=== PATIENT | female | born 1985 | race Caucasian/White ===

== ENCOUNTER 2016-12-06 18:21 | Emergency (ER) | payer SELFPAY ==
[~2016-12-06] VITALS: Ht 162.6 cm; Wt 81.6 kg
[2016-12-06] MEDS ORDERED: EPINEPHRINE 1 MG/ML VIAL. ONE (18:27)
[2016-12-06] MEDS ORDERED: FAMOTIDINE 20 MG/2 ML VIAL ONE (18:28)
[2016-12-06] MEDS ORDERED: DIPHENHYDRAMINE 50 MG/ML VIAL ONE (18:28)
[2016-12-06] MEDS ORDERED: methylPREDNISolone SOD SUCC PF 125 MG/2 ML VIAL. ONE (18:28)
[2016-12-06] MEDS ORDERED: LORAZEPAM 2 MG/ML VIAL ONE (18:38)
[2016-12-06] MEDS ORDERED: ONDANSETRON PF 4 MG/2 ML VIAL. ONE ×2 (18:38→18:39)
[2016-12-06] MEDS ORDERED: methylPREDNISolone SOD SUCC PF 125 MG/2 ML VIAL. IV ONE (18:45)
[2016-12-06] MEDS ORDERED: FAMOTIDINE 20 MG TABLET. PO ONE (18:45)
[2016-12-06] MEDS ORDERED: IV NORMAL SALINE 1000ML BAG 1,000 ML IV ONE (18:45)
[2016-12-06] MEDS ORDERED: LORAZEPAM 2 MG/ML VIAL IV ONE (19:00)
[2016-12-06] MEDS ORDERED: ONDANSETRON PF 4 MG/2 ML VIAL. IV ONE (19:00)
[2016-12-06 20:00] VITALS: BP 115/57
[2016-12-06] MEDS ORDERED: RANI300T3 PO (20:02)
[2016-12-06] MEDS ORDERED: HYDR-971 PO (20:02)
[2016-12-06] MEDS ORDERED: PRED20TA PO (20:02)
--- NOTE | 2016-12-06 20:02 | PHYS DOC ---
Past Medical History Past Medical History: No Pertinent History Past Surgical History: , Hysterectomy, Tubal ligation Alcohol Use: None Drug Use: None Adult General Chief Complaint Chief Complaint: ALLERGIC REACTION HPI HPI 31-year-old female presents with a pruritic diffuse red rash. She states this developed suddenly approximately an hour prior to her arrival. She states she felt like her eyes were swollen shut and was unable to see tripped over something at the house and landed on her left hip. She was ambulatory after the accident. She does continue to complain of left hip pain. She denies any difficulty breathing. She states it does feel like there is a golf ball in her throat though. [] Review of Systems Review of Systems Constitutional: Denies fever or chills [] Eyes: Denies change in visual acuity, redness, or eye pain [] HENT: Denies nasal congestion or sore throat [] Respiratory: Denies cough or shortness of breath [] Cardiovascular: No additional information not addressed in HPI [] GI: Denies abdominal pain, nausea, vomiting, bloody stools or diarrhea [] : Denies dysuria or hematuria [] Musculoskeletal: Denies back pain or joint pain [] Integument: Per history of present illness [] Neurologic: Denies headache, focal weakness or sensory changes [] Endocrine: Denies polyuria or polydipsia [] Current Medications Current Medications Current Medications Medications (Trade) Dose Ordered Sig/Giacomo Start Time Stop Time Status Last Admin Dose Admin Diphenhydramine HCl (Benadryl) 50 mg STK-MED ONCE 12/06/16 18:28 12/06/16 18:29 DC Epinephrine HCl (Adrenalin) 1 mg STK-MED ONCE 12/06/16 18:27 12/06/16 18:28 DC Famotidine (Pepcid) 20 mg STK-MED ONCE 12/06/16 18:28 12/06/16 18:29 DC Famotidine 20 mg 20 mg 1X ONCE 12/06/16 18:45 12/06/16 18:46 DC 12/06/16 18:33 20 MG Lorazepam (Ativan) 1 mg 1X ONCE 12/06/16 19:00 12/06/16 19:01 DC 12/06/16 18:40 1 MG Methylprednisolone Sodium Succinate (Solu-Medrol 125mg Vial) 125 mg 1X ONCE 12/06/16 18:45 12/06/16 18:46 DC 12/06/16 18:33 125 MG Ondansetron HCl (Zofran) 4 mg 1X ONCE 12/06/16 19:00 12/06/16 19:01 DC 12/06/16 18:40 4 MG Sodium Chloride (Iv Sodium Chloride 0.9% 1000ml Bag) 1,000 ml @ 1,000 mls/hr 1X ONCE 12/06/16 18:45 12/06/16 19:44 DC 12/06/16 18:33 1,000 MLS/HR Allergies Allergies Allergies Coded Allergies Type Severity Reaction Last Updated Verified latex Allergy Intermediate 12/06/16 Yes morphine Allergy Intermediate 12/06/16 Yes sulfamethoxazole Allergy Intermediate 12/06/16 Yes trimethoprim Allergy Intermediate 12/06/16 Yes Physical Exam Physical Exam Constitutional: Well developed, well nourished, no acute distress, non-toxic appearance. [] HENT: Normocephalic, atraumatic, bilateral external ears normal, oropharynx moist, no oral exudates, nose normal, no tongue or uvula swelling. [] Eyes: PERRLA, EOMI, conjunctiva normal, no discharge. [] Neck: Normal range of motion, no tenderness, supple, no stridor. [] Cardiovascular:Heart rate regular rhythm, no murmur [] Lungs & Thorax: Bilateral breath sounds clear to auscultation [] Abdomen: Bowel sounds normal, soft, no tenderness, no masses, no pulsatile masses. [] Skin: Diffuse urticarial rash. [] Back: No tenderness, no CVA tenderness. [] Extremities: No tenderness, no cyanosis, no clubbing, ROM intact, no edema. [] Neurologic: Alert and oriented X 3, normal motor function, normal sensory function, no focal deficits noted. [] Psychologic: Affect normal, judgement normal, mood normal. [] Current Patient Data Vital Signs Vital Signs Date Time Temp Pulse Resp B/P Pulse Ox O2 Delivery O2 Flow Rate FiO2 12/06/16 18:25 98.4 114 24 172/75 99 Room Air 98.4 EKG EKG [] Radiology/Procedures Radiology/Procedures [] Course & Med Decision Making Course & Med Decision Making Pertinent Labs and Imaging studies reviewed. (See chart for details) [ED course: Evaluation reveals a 31-year-old female with an allergic reaction. 4 unsure exactly what caused the reaction as there was no new foods soaps detergents or perfumes lotions etc. She was given 125 of Solu-Medrol 20 of Pepcid and she had 50 of Benadryl prior to arrival with near complete resolution of her rash and the department. She is stable for discharge home] Anthony Disclaimer [employer] Disclaimer This electronic medical record was generated, in whole or in part, using a voice recognition dictation system. Departure Departure Impression: Primary Impression: Allergic reaction Disposition: HOME, SELF-CARE Condition: IMPROVED Referrals: NO PCP (PCP) Patient Instructions: Rash Additional Instructions: Take medication as directed. Return to the MRSA part with any new or concerning symptoms Scripts Ranitidine Hcl (Zantac)300 Mg Tablet1 Tab PO QHS allergic reaction #30 TAB Ref 3 Prov:DONNA WATTS DO 12/06/16 Prednisone 20 Mg Tablet2 Tab PO DAILY PRN COUGH #14 TAB Prov:DONNA WATTS DO 12/06/16 Hydrocodone/Apap 5-325 ([place] 5-325 Tablet)1 Each Tablet1 Tab PO PRN Q6HRS PRN PAIN #20 TAB Prov:DONNA WATTS DO 12/06/16 Problem Qualifiers Primary Impression: Allergic reaction Encounter type: initial encounter Qualified Code: T78.40XA - Allergy, unspecified, initial encounter DONNA WATTS DO Dec 06, 2016 20:02
[2016-12-06] MEDS ORDERED: OXYCODONE/APAP 5/325 TABLET. PO ONE (20:30)
== END 2016-12-06 20:08 | disposition home or self-care (01) ==
LOC: ER 18:21
DX: T78.49XA Other allergy, initial encounter (principal); L50.9 Urticaria, unspecified; M25.552 Pain in left hip; Z88.5 Allergy status to narcotic agent; Z88.2 Allergy status to sulfonamides; Z88.1 Allergy status to other antibiotic agents; Z91.040 Latex allergy status; X58.XXXA Exposure to other specified factors, initial encounter
CPT/HCPCS: 96361; 96374; 96375; 99284; J2060; J2405; J2930; J7030